=== PATIENT | male | born 2000 | race Caucasian/White ===

== ENCOUNTER 2020-11-17 06:25 | Emergency (ER) | payer SELFPAY ==
[~2020-11-17] VITALS: Ht 175.3 cm; Wt 103.9 kg
[2020-11-17 06:29] VITALS: BP 153/104
[2020-11-17] MEDS ORDERED: SODIUM PHOSPHATE 118 ML ENEM RC ONE (06:50)
[2020-11-17] MEDS ORDERED: ONDANSETRON 4 MG/2 ML VIAL IVP ONE (06:50)
[2020-11-17] MEDS ORDERED: NACL 0.9% 1,000 ML IV SCH (06:50)
[2020-11-17 06:58] LABS: APPEARANCE,URINE HAZY (CLEAR); BILIRUBIN,URINE 1+ (NEGATIVE); BLOOD, URINE NEGATIVE (NEGATIVE); COLOR,URINE YELLOW (YELLOW); LEUKOCYTE ESTERASE ,URINE NEGATIVE (NEGATIVE); NITRITE, URINE NEGATIVE (NEGATIVE); PH,URINE 5.5 (5.0-9.0); UGLUCOSE NEGATIVE (NEGATIVE)
[2020-11-17 07:07] LABS: BASOPHILS # (AUTO) 0.1 K/uL (0.00-0.22); BASOPHILS % (AUTO) 0.7 % (0.0-2.0); EOSINOPHILS # (AUTO) 0.4 K/uL (0-0.4); EOSINOPHILS % (AUTO) 3.8 % (0.0-4.0); HEMATOCRIT 46.8 % (36-52); HEMOGLOBIN 16.4 g/dL (12.0-18.0); LYMPHOCYTES # (AUTO) 2.9 K/uL (2.0-11.5); LYMPHOCYTES % (AUTO) 28.4 % (20.5-51.1); MEAN CORPUSCULAR HEMOGLOBIN 31 pg (27-31); MEAN CORPUSCULAR HGB CONC 35 g/dL (33-37); MEAN CORPUSCULAR VOLUME 87.9 fL (80-94); MONOCYTES # (AUTO) 0.7 K/uL (0.8-1.0); MONOCYTES % (AUTO) 6.6 % (1.7-9.3); NEUTROPHILS # (AUTO) 6.1 K/uL (1.8-7.7); NEUTROPHILS % (AUTO) 60.5 % (42.2-75.2); PLATELET COUNT (AUTO) 199 K/uL (140-450); RED BLOOD CELL COUNT(AUTO) 5.32 MIL/uL (4.20-6.10); RED CELL DISTRIBUTION WIDTH 12.2 % (11.6-13.7); WHITE BLOOD COUNT (AUTO) 10.1 K/uL (4.8-10.8)
[2020-11-17 07:22] LABS: ALBUMIN 4.4 g/dL (3.4-5.0); ANION GAP 11.2 (8-16); CARBON DIOXIDE 28.5 mmol/L (21-32); POTASSIUM 3.7 mmol/L (3.5-5.1); TOTAL BILIRUBIN 0.8 mg/dL (0.0-1.0)
[2020-11-17] MEDS ORDERED: MIRABULK PO (07:52)
[2020-11-17 08:18] VITALS: BP 153/104
== END 2020-11-17 09:17 | disposition home or self-care (01) ==
LOC: MED 06:25
DX: G44.209 Tension-type headache, unspecified, not intractable (principal); F41.8 Other specified anxiety disorders; R03.0 Elevated blood-pressure reading, without diagnosis of hypertension; Z79.899 Other long term (current) drug therapy; Z98.890 Other specified postprocedural states
CPT/HCPCS: 36415; 74018; 80053; 81003; 83690; 85025; 99284; J7030

== ENCOUNTER 2021-07-10 20:17 | Emergency (ER) | payer MEDICAID ==
[~2021-07-10] VITALS: Ht 175.3 cm; Wt 106.6 kg
[~2021-07-10 20:17] MED LIST: MIRABULK PO
[2021-07-10 20:47] VITALS: BP 161/100
[2021-07-10] MEDS ORDERED: HYDR-1098 PO (21:03)
[2021-07-10 21:09] VITALS: BP 161/100
--- NOTE | 2021-07-10 21:09 | NUR ---
Patient discharged with v/s stable. Written and verbal after care instructions given and explained. Patient alert, oriented and verbalized understanding of instructions. Ambulatory with steady gait. All questions addressed prior to discharge. ID band removed. Patient advised to follow up with PMD. Rx of hydralazine given. Patient educated on indication of medication including possible reaction and side effects. Opportunity to ask questions provided and answered.
== END 2021-07-10 21:09 | disposition home or self-care (01) ==
LOC: MED 20:17
DX: F41.9 Anxiety disorder, unspecified (principal); R06.02 Shortness of breath; Z88.0 Allergy status to penicillin; Z79.899 Other long term (current) drug therapy
CPT/HCPCS: 99283

== ENCOUNTER 2023-04-20 02:05 | Inpatient (IN) | payer MEDICAID ==
[2023-04-20] VITALS (10 sets, daily range): BP systolic 145–168; BP diastolic 90–114; PULSE 95–123; RESP 17–22; TEMP 97.7–98.8; O2SAT 95–99
[~2023-04-20] VITALS: Ht 175.3 cm; Wt 113.4 kg
[~2023-04-20 02:05] MED LIST changes: +HYDR-1098 PO
[2023-04-20] MEDS ORDERED: LORazepam 2 MG/ML VIAL ONE (02:11)
[2023-04-20] MEDS ORDERED: LORazepam 2 MG/ML VIAL IVP ONE (02:17)
[2023-04-20] MEDS ORDERED: NACL 0.9% 1,000 ML IV ONE (02:30)
[2023-04-20 02:48] LABS: BASOPHILS % (AUTO) 0.4 % (0.0-2.0); EOSINOPHILS % (AUTO) 0.2 % (0.0-4.0); HEMATOCRIT 44.1 % (36-52); HEMOGLOBIN 15.7 g/dL (12.0-18.0); LYMPHOCYTES # (AUTO) 1.3 K/uL (2.0-11.5); LYMPHOCYTES % (AUTO) 13.9 % (20.5-51.1); MEAN CORPUSCULAR HEMOGLOBIN 31 pg (27-31); MEAN CORPUSCULAR HGB CONC 36 g/dL (33-37); MONOCYTES # (AUTO) 0.5 K/uL (0.8-1.0); MONOCYTES % (AUTO) 5.3 % (1.7-9.3); NEUTROPHILS # (AUTO) 7.7 K/uL (1.8-7.7); NEUTROPHILS % (AUTO) 80.2 % (42.2-75.2); PLATELET COUNT (AUTO) 207 K/uL (140-450); RED BLOOD CELL COUNT(AUTO) 5.13 MIL/uL (4.20-6.10); RED CELL DISTRIBUTION WIDTH 13.5 % (11.6-13.7); WHITE BLOOD COUNT (AUTO) 9.6 K/uL (4.8-10.8)
[2023-04-20 03:13] LABS: ALANINE AMINOTRANSFERASE 345 U/L (12-78); ALBUMIN 4.3 g/dL (3.4-5.0); ALCOHOL, BLOOD 6 mg/dL (<10); ALKALINE PHOSPHATASE 134 U/L (50-136); ANION GAP 19.7 (8-16); ASPARTATE AMINOTRANSFERASE 97 U/L (15-37); CALCIUM 9.9 mg/dL (8.5-10.1); CARBON DIOXIDE 29.6 mmol/L (21-32); CHLORIDE 92 mmol/L (98-107); GFR ARICAN-AMERICAN 119 mL/min (>90); GFR NON ARICAN-AMERICAN 98 mL/min (>90); GLUCOSE 98 mg/dL (74-106); SODIUM SERUM 139 mmol/L (136-145); TOTAL BILIRUBIN 2.5 mg/dL (0.0-1.0); TOTAL PROTEIN, SERUM 7.8 g/dL (6.4-8.2); UREA NITROGEN, BLOOD 8 mg/dL (7-18)
[2023-04-20 03:20] LABS: POTASSIUM 2.3 mmol/L (3.5-5.1)
[2023-04-20] MEDS ORDERED: LORazepam 1 MG TAB PO ONE (03:20)
[2023-04-20 03:21] LABS: ACETAMINOPHEN < 0.5 ug/ml (10-30); SALICYLATE < 2.8 mg/dL (2.8-20.0)
[2023-04-20] MEDS ORDERED: KCL 20 MEQ IN 100 mL PREMIX 100 ML IV ONE (03:25)
[2023-04-20] MEDS ORDERED: MAG SULF 2000 MG/WATER PREMIX 50 ML IV ONE (04:35)
[2023-04-20] MEDS ORDERED: POTASSIUM CHLORIDE 10 MEQ TABER PO PRN (05:35)
[2023-04-20] MEDS ORDERED: ZOLPIDEM 5 MG TAB PO PRN ×2 (05:35→07:05)
[2023-04-20] MEDS ORDERED: HYDROcodone/APAP 7.5/325 MG 1 TAB PO PRN ×2 (05:35→07:05)
[2023-04-20] MEDS ORDERED: guaiFENesin DM 200/20 MG-10 ML 10 ML UDC PO PRN ×2 (05:35→07:05)
[2023-04-20] MEDS ORDERED: DOCUSATE SODIUM 100 MG GELCAP PO PRN ×2 (05:35→07:05)
[2023-04-20] MEDS ORDERED: ACETAMINOPHEN 325 MG TAB PO PRN ×2 (05:35→07:05)
[2023-04-20] MEDS ORDERED: ONDANSETRON 4 MG/2 ML VIAL IM/IVP PRN ×2 (05:35→07:05)
[2023-04-20] MEDS ORDERED: LORazepam 2 MG/ML VIAL IVP PRN ×2 (05:40→07:10)
[2023-04-20] MEDS: NACL 0.9% 1,000 ML IV SCH ×4 (06:10→23:34)
[2023-04-20] MEDS ORDERED: PANTOPRAZOLE 40 MG TABEC PO SCH (09:00)
[2023-04-20] MEDS ORDERED: FOLIC ACID 1 MG TAB PO SCH (09:00)
[2023-04-20 09:25] LABS: INR 1.15 (0.8-1.2); PARTIAL THROMBOPLASTIN TIME 26.3 secs (22-35.6)
[2023-04-20 09:48] LABS: CHOL/HDL RATIO 2.7 (1-4.5); FREE T4 (FREE THYROXINE) 1.11 ng/dL (0.76-1.46); THYROID STIMULATING HORMONE 1.43 uIU/mL (0.34-3.74)
[2023-04-20] MEDS: chlordiazePOXIDE 25 MG CAP PO SCH ×3 (09:50→17:07)
[2023-04-20] MEDS: THIAMINE 200 MG/2 ML VIAL IM SCH (09:50)
[2023-04-20] MEDS: PANTOPRAZOLE 40 MG TABEC PO SCH (09:50)
[2023-04-20] MEDS: POTASSIUM CHLORIDE 10 MEQ TABER PO PRN (10:29)
[2023-04-20 14:39] LABS: BENZODIAZEPINE, URINE POSITIVE ng/mL (NEG <=200); CANNABINOID, URINE NEGATIVE ng/mL (NEG <=50); COCAINE, URINE NEGATIVE ng/mL (NEG <=300); PHENCYCLIDINE SCREEN,URINE NEGATIVE ng/mL (NEG <=25)
[2023-04-20 14:40] LABS: AMPHETAMINE, URINE NEGATIVE ng/ml (NEG <=1000); BARBITURATE, URINE NEGATIVE ng/ml (NEG <=200); OPIATE, URINE NEGATIVE ng/mL (NEG <=2000)
[2023-04-20] MEDS: hydrALAZINE 10 MG TAB PO PRN ×2 (17:39→23:31)
[2023-04-21] VITALS: BP 175/110; PULSE 104; RESP 18; TEMP 98.4; O2SAT 97
[2023-04-21 03:52] VITALS: PULSE 86
[2023-04-21 04:00] VITALS: BP 165/101; PULSE 94; RESP 17; TEMP 98.6; O2SAT 97
[2023-04-21 06:52] LABS: ALBUMIN 3.6 g/dL (3.4-5.0); ANION GAP 12.3 (8-16); CALCIUM 9.3 mg/dL (8.5-10.1); CARBON DIOXIDE 26.8 mmol/L (21-32); CREATININE 0.8 mg/dL (0.6-1.3); POTASSIUM 3.1 mmol/L (3.5-5.1); TOTAL BILIRUBIN 2.2 mg/dL (0.0-1.0); TOTAL PROTEIN, SERUM 6.7 g/dL (6.4-8.2)
[2023-04-21 07:14] LABS: BASOPHILS % (AUTO) 0.3 % (0.0-2.0); EOSINOPHILS # (AUTO) 0.1 K/uL (0-0.4); EOSINOPHILS % (AUTO) 1.7 % (0.0-4.0); HEMATOCRIT 40.7 % (36-52); HEMOGLOBIN 14.7 g/dL (12.0-18.0); LYMPHOCYTES # (AUTO) 1.2 K/uL (2.0-11.5); LYMPHOCYTES % (AUTO) 13.7 % (20.5-51.1); MEAN CORPUSCULAR HEMOGLOBIN 31 pg (27-31); MEAN CORPUSCULAR HGB CONC 36 g/dL (33-37); MEAN CORPUSCULAR VOLUME 86.4 fL (80-94); MONOCYTES # (AUTO) 0.4 K/uL (0.8-1.0); MONOCYTES % (AUTO) 4.4 % (1.7-9.3); NEUTROPHILS # (AUTO) 6.8 K/uL (1.8-7.7); NEUTROPHILS % (AUTO) 79.9 % (42.2-75.2); PLATELET COUNT (AUTO) 154 K/uL (140-450); RED BLOOD CELL COUNT(AUTO) 4.71 MIL/uL (4.20-6.10); RED CELL DISTRIBUTION WIDTH 13.4 % (11.6-13.7); WHITE BLOOD COUNT (AUTO) 8.5 K/uL (4.8-10.8)
[2023-04-21 08:00] VITALS: BP 188/115; PULSE 103; PULSE 113; RESP 18; TEMP 98; O2SAT 96
[2023-04-21] MEDS ORDERED: LIB25 PO ×2 (08:30→08:32)
[2023-04-21 09:06] LABS: HEMOGLOBIN A1C 4.8 % (4.8-5.6)
[2023-04-21] MEDS: hydrALAZINE 10 MG TAB PO PRN (10:25)
[2023-04-21] MEDS: chlordiazePOXIDE 25 MG CAP PO SCH (10:25)
[2023-04-21] MEDS: PANTOPRAZOLE 40 MG TABEC PO SCH (10:25)
[2023-04-21] MEDS: THIAMINE 200 MG/2 ML VIAL IM SCH (10:26)
[2023-04-21] MEDS: NACL 0.9% 1,000 ML IV SCH (10:29)
[2023-04-21] MEDS: POTASSIUM CHLORIDE 10 MEQ TABER PO PRN (10:50)
[2023-04-23 06:07] LABS: T4 (THYROXINE) 7.4 ug/dL (4.5-12.0)
== END 2023-04-21 12:35 | disposition home or self-care (01) | DRG 425 ==
LOC: MED 02:05 → MTU 05:37
PROVIDERS: ADMIT Student in an Organized Health Care Education/Training Program; ATTEND Student in an Organized Health Care Education/Training Program
DX: E87.6 Hypokalemia (principal); R65.10 Systemic inflammatory response syndrome (SIRS) of non-infectious origin without acute organ dysfunction; E66.9 Obesity, unspecified; F10.139 Alcohol abuse with withdrawal, unspecified; E83.42 Hypomagnesemia; F41.9 Anxiety disorder, unspecified; Y90.9 Presence of alcohol in blood, level not specified; Z68.36 Body mass index [BMI] 36.0-36.9, adult; Z88.0 Allergy status to penicillin; Z79.899 Other long term (current) drug therapy
CPT/HCPCS: 36415; 80053; 80305; 82150; 83036; 83690; 83735; 83880; 84100; 84436; 84439; 84443; 84479; 85025; 85610; 85730; 87081; 96365; 96366; 96367; 96375; 99291; G0480; G0482; J2060; J3411; J3475; J3480

== ENCOUNTER 2024-01-23 22:03 | Inpatient (IN) | payer SELFPAY ==
[~2024-01-23] VITALS: Ht 175.3 cm; Wt 112.0 kg
[~2024-01-23 22:03] MED LIST changes: +CHLO-1446 PO
[2024-01-23 22:12] VITALS: BP 176/112; PULSE 132; RESP 18; TEMP 100.3; O2SAT 98
[2024-01-23] MEDS: ONDANSETRON 4 MG/2 ML VIAL IVP ONE (22:41)
[2024-01-23 22:54] LABS: BASOPHILS % (AUTO) 0.2 % (0.0-2.0); EOSINOPHILS % (AUTO) 0.1 % (0.0-4.0); HEMATOCRIT 52.1 % (36-52); HEMOGLOBIN 18.3 g/dL (12.0-18.0); LYMPHOCYTES % (AUTO) 3.5 % (20.5-51.1); MEAN CORPUSCULAR HEMOGLOBIN 33 pg (27-31); MEAN CORPUSCULAR HGB CONC 35 g/dL (33-37); MEAN CORPUSCULAR VOLUME 92.9 fL (80-94); MONOCYTES # (AUTO) 1.7 K/uL (0.8-1.0); MONOCYTES % (AUTO) 6.2 % (1.7-9.3); NEUTROPHILS # (AUTO) 24.4 K/uL (1.8-7.7); PLATELET COUNT (AUTO) 326 K/uL (140-450); RED CELL DISTRIBUTION WIDTH 13.4 % (11.6-13.7)
[2024-01-23 22:58] LABS: WHITE BLOOD COUNT (AUTO) 27.1 K/uL (4.8-10.8)
[2024-01-23] MEDS: NACL 0.9% 1,000 ML IV SCH (22:59)
[2024-01-23 23:10] LABS: ALBUMIN 4.2 g/dL (3.4-5.0); BILIRUBIN,DIRECT 0.4 mg/dL (0.0-0.3); TOTAL BILIRUBIN 1.1 mg/dL (0.0-1.0); TOTAL PROTEIN, SERUM 8.3 g/dL (6.4-8.2)
[2024-01-23] MEDS: KETOROLAC 30 MG/ML VIAL IVP ONE (23:11)
[2024-01-23 23:51] LABS: ANION GAP 17.3 (8-16); CALCIUM 9.4 mg/dL (8.5-10.1); CARBON DIOXIDE 31.6 mmol/L (21-32); CREATININE 1.7 mg/dL (0.6-1.3); POTASSIUM 3.9 mmol/L (3.5-5.1)
[2024-01-24] MEDS: NACL 0.9% 1,000 ML IV ONE (00:16)
[2024-01-24] MEDS: LORazepam 2 MG/ML VIAL IVP ONE (00:32)
[2024-01-24] MEDS: ONDANSETRON 4 MG/2 ML VIAL IVP ONE (00:32)
[2024-01-24] MEDS: diphenhydrAMINE 50 MG/ML VIAL IVP ONE (01:38)
[2024-01-24] MEDS: METOCLOPRAMIDE 10 MG/2 ML INJ VIAL IVP ONE (01:39)
[2024-01-24] MEDS ORDERED: NACL 0.9% 1,000 ML IV SCH (01:55)
[2024-01-24] MEDS ORDERED: ACETAMINOPHEN 325 MG TAB PO PRN (01:55)
[2024-01-24] MEDS: PANTOPRAZOLE 40 MG INJ VIAL IVP ONE (02:31)
[2024-01-24] MEDS: chlordiazePOXIDE 25 MG CAP PO SCH (02:32)
[2024-01-24 08:00] VITALS: O2SAT 98
[2024-01-24] MEDS: PANTOPRAZOLE 40 MG INJ VIAL IVP SCH (10:01)
[2024-01-24] MEDS: NACL 0.9% 1,000 ML IV SCH (10:08)
[2024-01-24 12:08] VITALS: O2SAT 98
[2024-01-24 12:25] VITALS: BP 164/82; PULSE 109; PULSE 115; RESP 18; TEMP 98.3; O2SAT 96
[2024-01-24] MEDS ORDERED: LORazepam 2 MG/ML VIAL IM/IVP PRN (12:30)
[2024-01-24] MEDS: DEXT 5% /NACL 0.9% 1,000 ML IV SCH (13:39)
[2024-01-24 13:45] LABS: BASOPHILS % (AUTO) 0.2 % (0.0-2.0); EOSINOPHILS % (AUTO) 0.1 % (0.0-4.0); HEMATOCRIT 45.6 % (36-52); HEMOGLOBIN 15.9 g/dL (12.0-18.0); LYMPHOCYTES # (AUTO) 1.4 K/uL (2.0-11.5); LYMPHOCYTES % (AUTO) 7.1 % (20.5-51.1); MEAN CORPUSCULAR HEMOGLOBIN 32 pg (27-31); MEAN CORPUSCULAR HGB CONC 35 g/dL (33-37); MEAN CORPUSCULAR VOLUME 92.6 fL (80-94); MONOCYTES # (AUTO) 1.3 K/uL (0.8-1.0); MONOCYTES % (AUTO) 6.4 % (1.7-9.3); NEUTROPHILS # (AUTO) 17.6 K/uL (1.8-7.7); NEUTROPHILS % (AUTO) 86.2 % (42.2-75.2); PLATELET COUNT (AUTO) 209 K/uL (140-450); RED BLOOD CELL COUNT(AUTO) 4.92 MIL/uL (4.20-6.10); RED CELL DISTRIBUTION WIDTH 13.3 % (11.6-13.7); WHITE BLOOD COUNT (AUTO) 20.4 K/uL (4.8-10.8)
[2024-01-24 13:52] LABS: APPEARANCE,URINE CLEAR (CLEAR); BILIRUBIN,URINE 1+ (NEGATIVE); BLOOD, URINE NEGATIVE (NEGATIVE); COLOR,URINE YELLOW (YELLOW); LEUKOCYTE ESTERASE ,URINE NEGATIVE (NEGATIVE); NITRITE, URINE NEGATIVE (NEGATIVE); PH,URINE >=9.0 (5.0-9.0); PROTEIN,URINE 2+ (NEGATIVE); UGLUCOSE NEGATIVE (NEGATIVE)
[2024-01-24 14:09] LABS: ICTOTEST NEGATIVE (NEGATIVE)
[2024-01-24 14:10] LABS: BACTERIA,URINE OCCASSIONAL /HPF (None Seen); MUCUS,URINE 1+ /LPF (None Seen); RBC,URINE 0-5 /HPF (0-5); SQUAMOUS EPITHELIAL CELL,UR 0-3 (FEW) /LPF (0-3 (FEW)); WBC,URINE 0-5 /HPF (0-5)
[2024-01-24] MEDS: CLONIDINE HYDROCHLORIDE 0.1 MG TAB PO PRN (14:36)
[2024-01-24 16:00] VITALS: BP 162/92; PULSE 111; PULSE 98; RESP 19; TEMP 97.1; O2SAT 95
[2024-01-24] MEDS: LEVOFLOXACIN 500 MG/D5W PREMIX 100 ML IV SCH (17:54)
[2024-01-24 20:00] VITALS: BP 150/99; PULSE 104; RESP 19; TEMP 97.8; O2SAT 97
[2024-01-25] VITALS: BP 153/99; PULSE 107; PULSE 98; RESP 18; TEMP 97.8; O2SAT 95
[2024-01-25 04:00] VITALS: BP 157/95; PULSE 77; PULSE 81; RESP 18; TEMP 97.5; O2SAT 95
[2024-01-25 07:16] LABS: BASOPHILS % (AUTO) 0.2 % (0.0-2.0); EOSINOPHILS # (AUTO) 0.1 K/uL (0-0.4); EOSINOPHILS % (AUTO) 0.6 % (0.0-4.0); HEMATOCRIT 40.7 % (36-52); HEMOGLOBIN 14.5 g/dL (12.0-18.0); LYMPHOCYTES % (AUTO) 20.9 % (20.5-51.1); MEAN CORPUSCULAR HEMOGLOBIN 33 pg (27-31); MEAN CORPUSCULAR HGB CONC 36 g/dL (33-37); MEAN CORPUSCULAR VOLUME 92.9 fL (80-94); MONOCYTES # (AUTO) 0.6 K/uL (0.8-1.0); MONOCYTES % (AUTO) 6.1 % (1.7-9.3); NEUTROPHILS # (AUTO) 6.9 K/uL (1.8-7.7); NEUTROPHILS % (AUTO) 72.2 % (42.2-75.2); PLATELET COUNT (AUTO) 147 K/uL (140-450); RED BLOOD CELL COUNT(AUTO) 4.38 MIL/uL (4.20-6.10); RED CELL DISTRIBUTION WIDTH 13.6 % (11.6-13.7); WHITE BLOOD COUNT (AUTO) 9.6 K/uL (4.8-10.8)
[2024-01-25 07:56] LABS: ALBUMIN 2.9 g/dL (3.4-5.0); ANION GAP 12.4 (8-16); CALCIUM 8.1 mg/dL (8.5-10.1); CARBON DIOXIDE 26.8 mmol/L (21-32); MAGNESIUM 1.7 mg/dL (1.8-2.4); PHOSPHORUS 3.5 mg/dL (2.5-4.9); POTASSIUM 3.2 mmol/L (3.5-5.1); TOTAL BILIRUBIN 1.4 mg/dL (0.0-1.0); TOTAL PROTEIN, SERUM 6.3 g/dL (6.4-8.2)
[2024-01-25 08:00] VITALS: BP 154/101; PULSE 101; RESP 19; TEMP 98.1; O2SAT 97; O2SAT 99
[2024-01-25] MEDS: POTASSIUM CHLORIDE 10 MEQ TABER PO SCH (11:17)
[2024-01-25] MEDS: MAGNESIUM OXIDE 400 MG TAB PO SCH (11:18)
[2024-01-25] MEDS: ONDANSETRON 4 MG/2 ML VIAL IVP PRN (11:18)
[2024-01-25 12:00] VITALS: BP 154/101; PULSE 101; RESP 19; TEMP 98.1; O2SAT 99
[2024-01-25 15:06] LABS: HEPATITIS A ANTIBODY IGM Negative (Negative); HEPATITIS B CORE AB TOTAL Negative (Negative); HEPATITIS B CORE, IGM Negative (Negative); HEPATITIS B SURFACE ANTIBODY Non Reactive (.); HEPATITIS B SURFACE ANTIGEN Negative (Negative); HEPATITIS C VIRUS ANTIBODY Non Reactive (Non Reactive)
[2024-01-25 16:45] VITALS: O2SAT 99
[2024-01-25] MEDS ORDERED: PANT40EC PO (16:55)
[2024-01-25 18:29] LABS: HEPATITIS A ANTIBODY TOTAL Positive (Negative)
== END 2024-01-25 17:25 | DRG 379 ==
LOC: MED 22:03 → MTU 01-24 01:54
PROVIDERS: ADMIT Student in an Organized Health Care Education/Training Program; ATTEND Student in an Organized Health Care Education/Training Program
DX: K92.0 Hematemesis (principal); F10.10 Alcohol abuse, uncomplicated; D72.829 Elevated white blood cell count, unspecified; Z79.899 Other long term (current) drug therapy
CPT/HCPCS: 36415; 71045; 74150; 76705; 80048; 80053; 80076; 81001; 83690; 83735; 84100; 85025; 86704; 86706; 86708; 86709; 86803; 87040; 87081; 87340; 93005; 96361; 96374; 96375; 96376; 99285; C9113; G0482; J1200; J1885; J1956; J2060; J2405; J2765; Q0092